=== PATIENT | female | born 1980 | race Asian ===

== ENCOUNTER 2023-11-11 21:57 | Observation (INO) | payer OTHER ==
[~2023-11-11] VITALS: Ht 154.9 cm; Wt 70.3 kg
[2023-11-11 22:39] VITALS: BP 122/81; PULSE 107; RESP 18; TEMP 98.3
== END 2023-11-11 23:45 | disposition home or self-care (01) ==
LOC: MLD 21:57
PROVIDERS: ADMIT Obstetrics & Gynecology; ATTEND Obstetrics & Gynecology
DX: O26.853 Spotting complicating pregnancy, third trimester (principal); O24.419 Gestational diabetes mellitus in pregnancy, unspecified control; Z3A.39 39 weeks gestation of pregnancy
CPT/HCPCS: G0378